=== PATIENT | female | born 1940 | race Caucasian/White ===

== ENCOUNTER 2019-03-06 05:13 | Outpatient (CLI) | payer MEDICARE, OTHER | END 2019-03-06 05:14 | disposition critical access hospital (66) | LOC: EMS 05:13 | PROVIDERS: ATTEND Surgery | DX: R42 Dizziness and giddiness (principal); R11.2 Nausea with vomiting, unspecified | CPT/HCPCS: A0425; A0427 ==

== ENCOUNTER 2019-03-06 05:39 | Emergency (ER) | payer MEDICARE, OTHER ==
--- NOTE | 2019-03-06 06:01 | ED Physician Documentation ---
PD HPI HEENT - Stated complaint Stated Complaint: DIZZY, N/V - Chief complaint Chief Complaint: Heent - History obtained from History obtained from: Patient, EMS - History of Present Illness Timing - onset: How many hours ago (about 1 hour LAST WAXER), Today Timing - details: Abrupt onset (She noted an onset of dizziness when she got up out of bed. She felt spinning. She was nauseous and did vomit a couple of times with it. She denied any headache or focal weakness. She did not have any visual changes. She states she had had left ear pain the last day or 2. She did not have any dizziness yesterday or going to bed last night. She states she has had some dizziness at times in the past. She also gets lightheaded at times subsequent to anemia. She denies any history of vascular problems such as stroke or heart attack.) Location: Left ear, Other (dizziness/vertigo when got up from bed this morning) Improves: Other (holding still) Worsens: Position, Other (head movement) Associated symptoms: Other (left ear feels plugged the past couple days.). No: Fever, Congestion, Cough Similar symptoms before: No diagnosis (has had vertigo in the past.) Recently seen: Not recently seen Review of Systems Constitutional: denies: Fever, Chills Ears: reports: Ear pain (left ear for couple days) Nose: denies: Rhinorrhea / runny nose, Congestion Throat: denies: Sore throat Cardiac: denies: Chest pain / pressure, Palpitations Respiratory: denies: Dyspnea, Cough GI: reports: Nausea, Vomiting (just this morning with the vertigo) Skin: denies: Rash, Lesions Neurologic: reports: Generalized weakness (for the past week). denies: Focal weakness, Numbness, Near syncope, Confused, Altered mental status, Headache, Head injury PD PAST MEDICAL HISTORY - Past Medical History Past Medical History: Yes Cardiovascular: Hypertension Respiratory: Asthma, Sleep apnea, CPAP use Neuro: None Endocrine/Autoimmune: Type 2 diabetes GI: None STORE GROUP MANAGER: None : None HEENT: None Psych: None Musculoskeletal: Osteoarthritis, Chronic back pain Derm: None - Past Surgical History Past Surgical History: Yes Ortho: Hip replacement, Spine surgery /STORE GROUP MANAGER: Hysterectomy Other past surgical history: History of iron deficiency anemia with iron infusions the last one being several weeks ago. She states her last transfusion was several months ago. Her last hemoglobin she recalls was 8.8 about 6 to 8 weeks ago. She was due to get her blood tested again soon. She states she has had upper and lower and virtual endoscopies without any signs of bleeding. She has had Hemoccult negative stools. - Present Medications Home Medications: Ambulatory Orders Medication Instructions Recorded Confirmed Cephalexin [Keflex] 500 mg PO TID #20 capsule 03/06/19 Meclizine HCl [Motion Sickness 25 mg PO Q6H PRN #25 tablet 03/06/19 Relief] dexAMETHasone [Decadron] 4 mg PO DAILY #5 tablet 03/06/19 - Allergies Allergies/Adverse Reactions: Allergies Allergy/AdvReac Type Severity Reaction Status Date / Time benazepril [From Lotensin] AdvReac Unknown Verified 03/06/19 05:50 morphine AdvReac Unknown Verified 03/06/19 05:50 niacin AdvReac Unknown Verified 03/06/19 06:43 - Social History Does the pt smoke?: No Smoking Status: Never smoker Does the pt drink ETOH?: No Does the pt have substance abuse?: No - Immunizations Immunizations are current?: Yes - POLST Patient has POLST: No PD ED PE NORMAL - Vitals Vital signs reviewed: Yes - General General: Alert and oriented X 3, No acute distress, Well developed/nourished - HEENT HEENT: PERRL, EOMI (nystagmus to the left), Pharynx benign. No: Ears normal (right is okay; left ear with fluid and bulging, mild redness. ) - Neck Neck: Supple, no meningeal sign, No adenopathy - Cardiac Cardiac: RRR, No murmur - Respiratory Respiratory: Clear bilaterally - Abdomen Abdomen: Soft, Non tender - Back Back: No CVA TTP - Derm Derm: Normal color, Warm and dry - Extremities Extremities: No deformity, No tenderness to palpate, Normal ROM s pain, No calf tenderness / cord, Other (mild edema both legs, no tenderness) - Neuro Neuro: Alert and oriented X 3, mechanical detailer 2-12 intact, No motor deficit, No sensory deficit, Normal speech, Other Eye Opening: Spontaneous Motor: Obeys Commands Verbal: Oriented GCS Score: 15 - Psych Psych: Normal mood, Normal affect Results - Vitals Vitals: Vital Signs - 24 hr 0703/06/19 03/06/19 05:47 05:53 06:05 Temperature 36.4 C L Heart Rate 88 82 87 Respiratory 17 16 14 Rate Blood Pressure 131/60 H O2 Saturation 98 96 100 03/06/19 03/06/19 03/06/19 06:12 06:23 06:28 Temperature Heart Rate 85 82 82 Respiratory 17 15 Rate Blood Pressure 110/61 O2 Saturation 100 98 03/06/19 03/06/19 03/06/19 08:03 09:23 09:38 Temperature 36.8 C 36.5 C 36.7 C Heart Rate 79 82 82 Respiratory 12 14 17 Rate Blood Pressure 91/59 L 100/60 125/69 O2 Saturation 97 03/06/19 03/06/19 03/06/19 09:45 10:00 10:15 Temperature 36.5 C 36.6 C 36.4 C L Heart Rate 81 83 83 Respiratory 16 15 16 Rate Blood Pressure 117/74 114/65 128/65 O2 Saturation 100 03/06/19 03/06/19 10:30 10:45 Temperature 36.6 C 36.7 C Heart Rate 82 81 Respiratory 16 14 Rate Blood Pressure 135/67 H 134/64 H O2 Saturation 99 Oxygen O2 Source Room air Oxygen Flow Rate 2 - Labs Labs: Laboratory Tests 03/06/19 03/06/19 03/06/19 06:15 06:44 06:44 WBC 7.4 RBC 2.72 L Hgb 7.0 L* Hct 24.7 L MCV 90.8 MCH 25.7 L MCHC 28.3 L RDW 22.5 H Plt Count 320 MPV 9.1 Neut # (Auto) 6.4 Lymph # (Auto) 0.5 L Kleberg # (Auto) 0.3 Eos # (Auto) 0.1 Baso # (Auto) 0.0 Absolute Nucleated RBC 0.00 Nucleated RBC % 0.0 Manual Slide Review Indicated WBC Morphology NORMAL APPEARANCE Platelet Estimate NORMAL (130-450,000) Platelet Morphology NORMAL APPEARANCE RBC Morph Micro Appear TEARDROP CELLS Sodium 142 Potassium 4.1 Chloride 106 Carbon Dioxide 24 Anion Gap 12.0 BUN 27 H Creatinine 1.1 H Estimated GFR (MDRD) 48 L Glucose 230 H Calcium 8.9 Magnesium 1.6 L Iron Total Bilirubin 0.5 AST 21 ALT 16 Alkaline Phosphatase 120 Total Protein 6.5 L Albumin 3.9 Globulin 2.6 Albumin/Globulin Ratio 1.5 Lipase 44 Urine Color YELLOW Urine Clarity SL. CLOUDY Urine pH 6.5 Ur Specific Parrott 1.015 Urine Protein NEGATIVE Urine Glucose (UA) NEGATIVE Urine Ketones NEGATIVE Urine Occult Blood TRACE-LYSE Urine Nitrite NEGATIVE Urine Bilirubin NEGATIVE Urine Urobilinogen 0.2 (NORMAL) Ur Leukocyte Esterase TRACE H Urine RBC 0-5 Urine WBC 4-5 Ur Squamous Epith Cells RARE Squamous Urine Bacteria Many H Ur Microscopic Review INDICATED Urine Culture Comments INDICATED Blood Type Blood Type Recheck Antibody Screen Crossmatch IS Only 03/06/19 03/06/19 03/06/19 06:44 06:44 07:22 WBC RBC Hgb Hct MCV MCH MCHC RDW Plt Count MPV Neut # (Auto) Lymph # (Auto) Kleberg # (Auto) Eos # (Auto) Baso # (Auto) Absolute Nucleated RBC Nucleated RBC % Manual Slide Review WBC Morphology Platelet Estimate Platelet Morphology RBC Morph Micro Appear Sodium Potassium Chloride Carbon Dioxide Anion Gap BUN Creatinine Estimated GFR (MDRD) Glucose Calcium Magnesium Iron 8 L Total Bilirubin AST ALT Alkaline Phosphatase Total Protein Albumin Globulin Albumin/Globulin Ratio Lipase Urine Color Urine Clarity Urine pH Ur Specific Parrott Urine Protein Urine Glucose (UA) Urine Ketones Urine Occult Blood Urine Nitrite Urine Bilirubin Urine Urobilinogen Ur Leukocyte Esterase Urine RBC Urine WBC Ur Squamous Epith Cells Urine Bacteria Ur Microscopic Review Urine Culture Comments Blood Type B POSITIVE Blood Type Recheck B POSITIVE Antibody Screen NEGATIVE Crossmatch IS Only See Detail PD MEDICAL DECISION MAKING - ED course Complexity details: reviewed results (I think her symptoms are some from anemia (recent general weakness) but also some from inner ear vertigo. She is here and her PMD/prior transfusions were at [facility]. I think it would be onerous to have her get transfusion there, and so discussed it with her and will give 1 unit of blood here and follow up PMD. Her vertigo component is improving with meds. ), considered differential (symptoms and onset c/w inner ear vertigo and left ear does have serous fluid. ), d/w patient Departure - Departure Disposition: 01 Home, Self Care Clinical Impression: Peripheral vertigo involving left ear, Generalized weakness Anemia Qualifiers: Anemia type: iron deficiency Iron deficiency anemia type: unspecified iron deficiency Qualified Code(s): D50.9 - Iron deficiency anemia, unspecified Condition: Stable Record reviewed to determine appropriate education?: Yes Instructions: ED Vertigo Unspecified Follow-Up: Shireen Dwyer MD [Primary Care Provider] - Prescriptions: Cephalexin [Keflex] 500 mg PO TID #20 capsule dexAMETHasone [Decadron] 4 mg PO DAILY #5 tablet Meclizine HCl [Motion Sickness Relief] 25 mg PO Q6H PRN #25 tablet PRN Reason: Vertigo Comments: Follow up with PMD for ongoing care. Continue usual meds. Add Decadron and Meclizine for inner ear dizziness. Keflex for possible ear infection. Discharge Date/Time: 03/06/19 11:29
[2019-03-06 06:28] LABS: BILIRUBIN,URINE NEGATIVE (NEGATIVE); GLUCOSE, URINE (UA) NEGATIVE (NEGATIVE); KETONES,URINE (UA) NEGATIVE (NEGATIVE); LEUKOCYTE ESTERASE, URINE TRACE (NEGATIVE); NITRITE,URINE NEGATIVE (NEGATIVE); OCCULT BLOOD,URINE TRACE-LYSE (NEGATIVE); PH,URINE 6.5 PH (5.0-7.5); PROTEIN,URINE NEGATIVE (NEGATIVE); UROBILINOGEN,URINE 0.2 (NORMAL) E.U./dL (NORMAL)
[2019-03-06 06:30] LABS: CLARITY,URINE SL. CLOUDY (CLEAR)
[2019-03-06] MEDS ORDERED: MECLIZINE 12.5 MG TABLET PO STA (06:31)
[2019-03-06] MEDS ORDERED: CHERRY SYRUP 10 ML UDC PO ONE (06:31)
[2019-03-06] MEDS ORDERED: cephALEXin 250 MG CAPSULE PO STA (06:31)
[2019-03-06] MEDS ORDERED: DEXAMETHASONE 10 MG/ML VIAL PO STA (06:31)
[2019-03-06 06:36] LABS: BACTERIA,URINE Many /HPF (None Seen); RBC,URINE 0-5 /HPF (0-5); SQUAMOUS EPITHELIAL CELL,UR RARE Squamous (<= Few)
[2019-03-06 06:50] LABS: BASOPHILS % (AUTO) 0.4 %; EOSINOPHILS # (AUTO) 0.1 10^3/uL (0.0-0.7); EOSINOPHILS % (AUTO) 0.8 %; LYMPHOCYTES # (AUTO) 0.5 10^3/uL (1.5-3.5); LYMPHOCYTES % (AUTO) 7.1 %; MEAN CORPUSCULAR HEMOGLOBIN 25.7 pg (27.0-31.0); MEAN CORPUSCULAR HGB CONC 28.3 g/dL (32.0-36.0); MEAN CORPUSCULAR VOLUME 90.8 fL (81.0-99.0); MEAN PLATELET VOLUME 9.1 fL (7.9-10.8); MONOCYTES # (AUTO) 0.3 10^3/uL (0.0-1.0); MONOCYTES % (AUTO) 4.1 %; NEUTROPHILS # (AUTO) 6.4 10^3/uL (1.5-6.6); NEUTROPHILS % (AUTO) 86.9 %; PLT - PLATELET COUNT 320 10^3/uL (130-450); RED BLOOD COUNT 2.72 10^6/uL (4.20-5.40); RED CELL DISTRIBUTION WIDTH 22.5 % (12.0-15.0); WHITE BLOOD COUNT 7.4 x10^3/uL (4.8-10.8)
[2019-03-06 07:06] LABS: ALBUMIN 3.9 g/dL (3.2-5.5); ALBUMIN/GLOBULIN RATIO 1.5 (1.0-2.2); BILIRUBIN,TOTAL 0.5 mg/dL (0.2-1.0); CALCIUM 8.9 mg/dL (8.5-10.3); CREATININE 1.1 mg/dL (0.4-1.0); MAGNESIUM 1.6 mg/dL (1.7-2.8); TOTAL PROTEIN 6.5 g/dL (6.7-8.2)
[2019-03-06] MEDS ORDERED: SODIUM CHLORIDE 0.9% 1,000 ML IV ONE (07:11)
[2019-03-06 07:24] LABS: PLATELET MORPHOLOGY NORMAL APPEARANCE (NORMAL)
[2019-03-06 07:25] LABS: PLATELET ESTIMATE, MANUAL NORMAL (130-450,000) (NORMAL)
[2019-03-06 11:07] VITALS: BP 134/64
== END 2019-03-06 11:29 | disposition home or self-care (01) ==
LOC: EDUNIT# → ED 05:39
DX: H81.392 Other peripheral vertigo, left ear (principal); D50.9 Iron deficiency anemia, unspecified; E11.9 Type 2 diabetes mellitus without complications; I10 Essential (primary) hypertension
CPT/HCPCS: 36415; 36430; 80053; 81001; 83540; 83690; 83735; 85025; 86850; 86900; 86901; 86920; 87086; 87181; 99284; 99285; A9270; P9016; 81003